=== PATIENT | male | born 1950 | race Caucasian/White ===

== ENCOUNTER 2018-07-08 19:12 | Observation (INO) | payer MEDICARE, OTHER, SELFPAY ==
[2018-07-08 19:13] VITALS: BMI 29.2
--- NOTE | 2018-07-08 20:11 | ED PDOC ---
Syncope/Near Syncope/Dizziness <Aleisha Kumar Y - Last Filed: 07/08/18 23:36> History Per: Patient, EMS, Family Fall Associated With With Symptoms: No Additional Complaint(s): 68M BIBA for "confusion" PMH DM/CVA 2012/A-fib as per EMS notes patient was noted to look confused so bystanders called EMS and he was found to be hypotensive/bradycardic and glucose-84. As per patient [facility] and "nosy friends" called EMS when he laid his head down on the table because he felt weak. Otherwise, he denies SOB/dizziness/chest pain/diaphoresis, but states feeling "a little" nauseous and having a headache. He reports feeling fine but admits to feeling "slow". His daughter is at bedside. 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 Taking Xarelto. - Symptoms Of CVA Associated Symptoms: New Confusion Current Coumadin Use?: Unknown Recent Head Trauma: No <Leonor Neri - Last Filed: 07/10/18 15:07> Time Seen by Provider: 07/08/18 19:18 Chief Complaint (Nursing): Weakness/Neurological Deficit NIHSS Stroke Scale - Date/Time Evaluation Performed Date Performed: 07/08/18 Time Performed: 20:05 When Was NIHSS Performed: Baseline - How Severe is the Stroke Level of Consciousness: 1=Drowsy LOC to Questions: 0=Both comments correct LOC to commands: 0=Obeys both correctly Best Gaze: 0=Normal Visual: 0=No visual loss Facial: 0=Normal Motor Arm - Left: 0=No drift Motor Arm - Right: 0=No drift Motor Leg - Left: 0=No drift Motor Leg - Right: 0=No drift Limb Ataxia: 0=Absent Sensory: 0=Normal Best Language: 0=No aphasia Dysarthia: 0=Normal articulation Extinction & Inattention (Neglect): 0=Normal, no object Score: 1 <Leonor Neri - Last Filed: 07/10/18 15:07> Past Medical History Vital Signs: Last Vital Signs Temp 98.7 F 07/08/18 19:16 Pulse 81 07/08/18 19:16 Resp 20 08/12/18 19:16 BP 134/87 07/08/18 19:16 Pulse Ox 96 07/08/18 21:14 <Aleisha Kumar Y - Last Filed: 07/08/18 23:36> Vital Signs: Last Vital Signs Temp 37.1 C 07/08/18 19:16 Pulse 81 07/08/18 19:16 Resp 20 07/08/18 19:16 BP 134/87 07/08/18 19:16 Pulse Ox 96 07/08/18 19:16 - Medical History PMH: Atrial Fibrillation, HTN, Hypercholesterolemia - Social History Current smoker - smoking cessation education provided: No - Immunization History Hx Tetanus Toxoid Vaccination: Yes Hx Influenza Vaccination: Yes Hx Pneumococcal Vaccination: Yes <Leonor Neri - Last Filed: 07/10/18 15:07> - Home Medications Home Medications: Ambulatory Orders Medication Instructions Recorded Amlodipine Besylate/Benazepril 1 cap PO DAILY 07/08/18 [Amlodipine-Benazepril 5-10 mg] Atorvastatin [Lipitor] 80 mg PO HS 07/08/18 Escitalopram [Lexapro] 1 tab PO DAILY 07/08/18 Glimepiride [Amaryl] 1 tab PO BID 07/08/18 Metoprolol Tartrate [Lopressor] 25 mg PO BID 07/08/18 Rivaroxaban [Xarelto] 1 tab PO HS 07/08/18 Zolpidem [Ambien] 10 mg PO HS 07/08/18 - Allergies Allergies/Adverse Reactions: Allergies Allergy/AdvReac Type Severity Reaction Status Date / Time No Known Allergies Allergy Verified 07/08/18 19:16 Review of Systems Constitutional: Positive for: Weakness. Negative for: Fever, Chills Eyes: Negative for: Vision Change Cardiovascular: Negative for: Chest Pain, Palpitations, Light Headedness Respiratory: Negative for: Cough, Shortness of Breath Gastrointestinal: Negative for: Nausea, Vomiting, Abdominal Pain Genitourinary Male: Negative for: Dysuria Neurological: Positive for: Weakness, Headache, Other (states feeling slow) <Leonor Neri - Last Filed: 07/10/18 15:07> Physical Exam - Reviewed Vital Signs Reviewed: Yes - Physical Exam Appears: Positive for: Well, Non-toxic, No Acute Distress Head Exam: Positive for: ATRAUMATIC, NORMAL INSPECTION Skin: Positive for: Normal Color, Warm, Dry Eye Exam: Positive for: Normal appearance, EOMI, PERRL. Negative for: Nystagmus ENT: Positive for: Pharynx Is (clear) Neck: Positive for: Supple Cardiovascular/Chest: Positive for: Irregularly Irregular. Negative for: JVD Respiratory: Positive for: Normal Breath Sounds. Negative for: Crackles, Rales , Wheezing Gastrointestinal/Abdominal: Positive for: Normal Exam, Bowel Sounds, Soft. Negative for: Tenderness Extremity: Positive for: Normal ROM, Capillary Refill (<3s). 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 Negative for: Motor/Sensory Deficits, Facial Droop <Leonor Neri - Last Filed: 07/10/18 15:07> - Laboratory Results Result Diagrams: 07/08/18 20:30 07/08/18 20:30 <Aleisha Kumar - Last Filed: 07/08/18 23:36> - Laboratory Results Result Diagrams: 07/09/18 05:50 07/09/18 05:50 - ECG O2 Sat by Pulse Oximetry: 96 <Leonor Neri - Last Filed: 07/10/18 15:07> Medical Decision Making Medical Decision Making: 68yo male, presented to ER acting confused. Per EMS, patient noted to be hypotensive and bradycardic on scene. Upon arrival, patient's accucheck noted to be 84. Per daughter, patient has been more confused lately. Patient currently has no medical complaints. On exam, patient with no focal motor deficits. CT Head results reviewed and are negative. Patient given aspirin. Patient follows with Dr. Valencia who is covered by Dr. Puente, and Dr. Puente aware of findings. Dr. Puente recommending consult with Dr. Santana, neurologist information resource consultant. Case discussed with Dr. Santana. Plan to admit patient to Tele, Dr. Puente agrees. <Aleisha Kumar Y - Last Filed: 07/08/18 23:36> Medical Decision Making: Ddx CVA, TIA, [place], infection. - EKG, CT head w/o contrast - CBC, CMP, PT/INR, PTT, Mg, Phos, Troponin 2057: EKG without acute changes/A-fib rate controlled, CT negative for intracranial hemorrhage or acute findings, no leukocytosis, INR is WNL, Troponin is WNL. 2129: Spoke w/ Dr Puente requests: repeat labs in AM, medication list, neuro information resource consultant, MRI, and echo. 2144: Spoke with Dr Santana requests EEG in AM, will hold off on MRI for now, poss bradyphrenia secondary to hypotension vs. possible seizure Family to bring medications in. 2199: Dr Puente informed of Dr Santana's thoughts and agrees as well as requesting pt to continue with Xarelto. <Leonor Neri - Last Filed: 07/10/18 15:07> Disposition <Aleisha Kumar Y - Last Filed: 07/08/18 23:36> - Patient ED Disposition Is Patient to be Admitted: Yes Discussed With : Gelacio Puente Doctor Will See Patient In The: Hospital Counseled Patient/Family Regarding: Studies Performed, Diagnosis - Disposition Disposition Time: 21:33 - Pt Status Changed To: Hospital Disposition Of: Inpatient - Admit Certification Admit to Inpatient:: After my assessment, the patient will require hospitalization for at least two midnights. This is because of the severity of symptoms shown, intensity of services needed, and/or the medical risk in this patient being treated as an outpatient. <Leonor Neri - Last Filed: 07/10/18 15:07> - Clinical Impression Clinical Impression: Atrial fibrillation with controlled ventricular response, Confusion with nonfocal neurological examination - Disposition Condition: FAIR - PA / ASSISTANT CASINO SHIFT MANAGER / Resident Statement / has reviewed & agrees with the documentation as recorded. / has examined the patient and agrees with the treatment plan. <Aleisha Kumar Y - Last Filed: 07/08/18 23:36>
[2018-07-08 20:39] LABS: BASO % 0.7 % (0.0-2.0); EOS % 0.6 % (0.0-4.0); LYMPH % 14.3 % (20.0-40.0); MEAN CELL VOLUME 89.2 fl (80.0-94.0); MEAN CORPUSCULAR HEMOGLOBIN 29.6 pg (27.0-31.0); MEAN CORPUSCULAR HGB CONC 33.2 g/dL (33.0-37.0); MEAN PLATELET VOLUME 7.5 fl (7.2-11.7); MONO # 0.6 K/uL (0.0-0.8); NEUT # 5.3 K/uL (1.8-7.0); NEUT % 76.4 % (50.0-75.0); NRBC % 0.1 % (0.0-0.0); RBC 5.74 Mil/uL (4.40-5.90); RED CELL DISTRIBUTION WIDTH 13.4 % (11.5-14.5); WHITE BLOOD COUNT 6.9 K/uL (4.8-10.8)
[2018-07-08 20:42] LABS: INR 1.1; PROTHROMBIN TIME 11.7 Seconds (9.8-13.1)
[2018-07-08 20:44] LABS: PARTIAL THROMBOPLASTIN TIME 31.7 Seconds (25.6-37.1)
[2018-07-08 20:50] LABS: ALB/GLOB RATIO 1.5 (1.0-2.1); ALBUMIN 4.4 g/dL (3.5-5.0); ALT/SGPT 32 U/L (21-72); AST/SGOT 37 U/L (17-59); BLOOD UREA NITROGEN 19 mg/dl (9-20); CALCIUM 9.7 mg/dL (8.4-10.2); GFR AFRICAN-AMERICAN > 60; GFR NON-AFRICAN AMERICAN > 60
[2018-07-08 23:50] LABS: URINE BILIRUBIN NEGATIVE (NEGATIVE); URINE BLOOD NEGATIVE (NEGATIVE); URINE CLARITY SLIGHTY-CLOUDY (Clear); URINE COLOR YELLOW (YELLOW); URINE GLUCOSE (UA) NEG (Normal); URINE LEUKOCYTE ESTERASE NEG Leu/uL (Negative); URINE PROTEIN 30 mg/dL (NEGATIVE); URINE UROBILINOGEN 0.2-1.0 mg/dL (0.2-1.0)
[2018-07-09] MEDS: Insulin Regular 100 units/ml SC SCH ×4 (06:24→22:31)
[2018-07-09 06:49] LABS: BASO % 0.7 % (0.0-2.0); EOS # 0.1 K/uL (0.0-0.7); EOS % 2.2 % (0.0-4.0); HEMOGLOBIN 17.1 g/dL (12.0-18.0); LYMPH # 1.3 K/uL (1.0-4.3); LYMPH % 23.7 % (20.0-40.0); MEAN CORPUSCULAR HEMOGLOBIN 29.6 pg (27.0-31.0); MEAN CORPUSCULAR HGB CONC 33.2 g/dL (33.0-37.0); MEAN PLATELET VOLUME 7.9 fl (7.2-11.7); MONO # 0.6 K/uL (0.0-0.8); MONO % 11.6 % (0.0-10.0); NEUT # 3.4 K/uL (1.8-7.0); NEUT % 61.8 % (50.0-75.0); NRBC % 0.6 % (0.0-0.0); RBC 5.79 Mil/uL (4.40-5.90); RED CELL DISTRIBUTION WIDTH 13.1 % (11.5-14.5); WHITE BLOOD COUNT 5.5 K/uL (4.8-10.8)
[2018-07-09 06:56] LABS: INR 1.4; PROTHROMBIN TIME 15.6 Seconds (9.8-13.1)
[2018-07-09 06:59] LABS: PARTIAL THROMBOPLASTIN TIME 43.1 Seconds (25.6-37.1)
[2018-07-09 07:04] LABS: LDL CHOLESTEROL 67 mg/dL (0-129)
[2018-07-09 07:09] LABS: T4 7.62 ug/dl (5.5-11.0)
[2018-07-09 07:37] LABS: ALB/GLOB RATIO 1.4 (1.0-2.1); ALBUMIN 4.2 g/dL (3.5-5.0); ALT/SGPT 35 U/L (21-72); AST/SGOT 35 U/L (17-59); BLOOD UREA NITROGEN 15 mg/dl (9-20); CALCIUM 9.2 mg/dL (8.4-10.2); GFR AFRICAN-AMERICAN > 60; GFR NON-AFRICAN AMERICAN > 60; HDL CHOLESTEROL 38 MG/DL (30-70)
--- NOTE | 2018-07-09 08:02 | CARD ---
APPROVED REPORT Date of service: 07/08/2018 EKG Measurement Heart [id number] <Conclusion> Atrial fibrillation Nonspecific ST and T wave abnormality Abnormal ECG
[2018-07-09] MEDS: GlipiZIDE 5 mg SR Tab PO SCH (08:45)
--- NOTE | 2018-07-09 09:04 | CT ---
Date of service: 07/08/2018 PROCEDURE: CT HEAD WITHOUT CONTRAST. HISTORY: near syncope COMPARISON: 05/27/2014. TECHNIQUE: Axial computed tomography images were obtained through the head/brain without intravenous contrast. Coronal and sagittal reconstructed images. Radiation dose: Total exam DLP = 726.64. MGy-cm. This CT exam was performed using one or more of the following dose reduction techniques: Automated exposure control, adjustment of the mA and/or kV according to patient size, and/or use of iterative reconstruction technique. FINDINGS: HEMORRHAGE: No intracranial hemorrhage. BRAIN: No mass effect or edema. Volume loss/ encephalomalacia change right frontal lobe. Similar findings identified previously. VENTRICLES: Unremarkable. No hydrocephalus. CALVARIUM: Unremarkable. PARANASAL SINUSES: Unremarkable as visualized. No significant inflammatory changes. MASTOID AIR CELLS: Unremarkable as visualized. No inflammatory changes. OTHER FINDINGS: None. IMPRESSION: No acute intracranial abnormalities. No significant findings to account for the clinical presentation. No significant interval change compared to the prior examination(s). Concordant results (preliminary interpretation) provided by [employer]. Procedure Completed: 20:32 Preliminary ([employer]Rad) Report: Dictated and Authenticated: 20:48. Final Interpretation: 09:02. July 09, 2018.
--- NOTE | 2018-07-09 11:48 | CARD ---
APPROVED REPORT Date of service: 07/09/2018 EXAM: Two-dimensional and M-mode echocardiogram with Doppler and color Doppler. Other Information Quality : GoodRhythm : NSR INDICATION Dizziness and Vertigo 2D DIMENSIONS IVSd1.25 (0.7-1.1cm)LVDd5.18 (3.9-5.9cm) LVOT Diameter1.96 (1.8-2.4cm)PWd1.23 (0.7-1.1cm) IVSs1.04 (0.8-1.2cm)LVDs4.69 (2.5-4.0cm) FS (%) 9.5 %PWs1.02 (0.8-1.2cm) M-Mode DIMENSIONS Left Atrium (MM)4.56 (2.5-4.0cm)IVSd0.76 (0.7-1.1cm) Aortic Root3.18 (2.2-3.7cm)Aortic Cusp Exc.1.74 (1.5-2.0cm) PWd0.97 (0.7-1.1cm)IVSs1.26 cm FS (%) 29 %PWs1.06 cm Aortic Valve AoV Peak Ijfeoyvg713.1cm/sAoV VTI16.2cmAO Peak GR.4mmHg LVOT Peak Shktaqkg82.0cm/sLVOT VTI11.86cmAO Mean GR.2mmHg Mitral Valve MV E Mhqusvog25.3cm/sMV DECEL HWKD415gsBO A Ztrslsdi62.4cm/s MV FTV86umI/A ratio3.6MVA (PHT)3.90cm2 TDI Lateral E' Peak V9.94cm/sMedial E' Peak V8.96cm/sE/Lateral E'6.7 E/Medial E'7.4 Pulmonary Valve PV Peak Wijlqngs296.5cm/s Tricuspid Valve TR Peak Kqxhbtvs665my/sRAP CRRJXNGM21hsGbRA Peak Gr.18mmHg EAVB68bqJm LEFT VENTRICLE The left ventricle is normal size. There is normal left ventricular wall thickness. The left ventricular ejection fraction is within the normal range. The Ejection Fraction is 55%. No regional wall motion abnormalities noted.. The left ventricular diastolic function is unable to be accurately assessed No left ventricle thrombus noted on this study. There is no ventricular septal defect visualized. There is no mass noted in the left ventricle. RIGHT VENTRICLE The right ventricle is normal size. There is normal right ventricular wall thickness. The right ventricular systolic function is normal. ATRIA The left atrium size is moderately dilated The right atrium size is normal. The interatrial septum is intact with no evidence for an atrial septal defect. AORTIC VALVE The aortic valve is normal in structure. No aortic regurgitation is present. There is no aortic valvular stenosis. MITRAL VALVE The mitral valve is normal in structure. There is no mitral valve stenosis. There is mild mitral valve regurgitation noted. TRICUSPID VALVE The tricuspid valve is normal in structure. There is mild tricuspid valve regurgitation noted. PASP in normal range PULMONIC VALVE The pulmonary valve is normal in structure. There is no pulmonic valvular regurgitation. GREAT VESSELS The aortic root is normal in size. The ascending aorta is normal in size. The pulmonary artery is normal. The IVC is normal in size and collapses >50% with inspiration. PERICARDIAL EFFUSION There is no pericardial effusion. <Conclusion> Mild mitral insufficiency Mild TR with normal PASP Dilated left atrium Normal LV systolic function The Ejection Fraction is 55%.
--- NOTE | 2018-07-09 12:33 | US ---
Date of service: 07/09/2018 PROCEDURE: Duplex ultrasound of the carotid and vertebral arteries. HISTORY: dizziness COMPARISON: None available. TECHNIQUE: Grayscale and duplex Doppler evaluation of the cervical carotid and vertebral arteries were performed. The common carotid, carotid bifurcations and cervical ICA and proximal ECA were evaluated. The vertebral arteries were evaluated for gross patency and direction. FINDINGS: RIGHT CAROTID ARTERIES: Common Carotid Artery: Intimal thickening is present Maximal flow velocity of 79.4 cm/s. Carotid Bifurcation: Heterogeneous plaque formation. Internal Carotid Artery:Heterogeneous plaque formation. Maximal flow velocity of 55.7 cm/s. External Carotid Artery (proximal branches): Normal. Maximal flow velocity of 94.4 cm/s. ICA/CCA Ratio: 0.8 LEFT CAROTID ARTERIES: Common Carotid Artery: Intimal thickening is present Maximal flow velocity of 85.3 cm/s. Carotid Bifurcation: Heterogeneous plaque formation. Internal Carotid Artery:Heterogeneous plaque formation. Maximal flow velocity of 52.8 cm/s. External Carotid Artery (proximal branches): Normal. Maximal flow velocity of 64.6 cm/s. ICA/CCA Ratio: 0.6 VERTEBRAL ARTERIES: Right Vertebral Artery: Patent. Antegrade flow. Left Vertebral Artery: Patent. Antegrade flow. OTHER FINDINGS: None. IMPRESSION: Right ICA degree of stenosis: Less than 50% Left ICA degree of stenosis: Less than 50% Reference Internal Carotid Artery (ICA) Peak Systolic Velocity (PSV) for above: 1. Less than 50% stenosis less than 125 cm/s peak systolic velocity 2. 50-69% stenosis 125-230cm/s peak systolic velocity 3. Greater than 70% but less than near occlusion greater than 230 cm/s peak systolic velocity
--- NOTE | 2018-07-09 15:16 | CP.PCM.HP ---
History of Present Illness - History of Present Illness History of Present Illness: 68 y/o M, with Hx of CVA 2012, [facility] A[facility] with no relief, but today symptom subsided. As per EMS; Pt was sitting with his friends at [employer] when suddenly began acting confused/disoriented, associated to dizziness and nausea, no vomiting, Pt felt tired and rested head on table, 911 was called by friends. Worsening symptom: Found with Hypotension and Bradycardia by Paramedics, unable to stand up. Aggravated factor: Movement. Pt denied: Fever, chills, n/v/d,abdominal pain, urinary symptoms, CP, palpitations, numbness, syncope, headache, back pain, sick contact, recent travel out of [facility]. ECG: A Fib, nonspecific ST and T wave abnormality. Carotid Artery U-S: R- L ICA degree of stenosis less than 50%. Head CT: No acute findings. Echo: Mild mitral insufficiency. LVEF 55%. Present on Admission - Present on Admission Any Indicators Present on Admission: No Review of Systems - Constitutional Constitutional: Weakness - EENT Eyes: Requires Corrective Lenses Ears: Other (negative) Nose/Mouth/Throat: Other (negative) - Cardiovascular Cardiovascular: Slow Heart Rate - Respiratory Respiratory: Other (negative) - Gastrointestinal Gastrointestinal: Other (negative) - Genitourinary Genitourinary: Other (negative) - Musculoskeletal Musculoskeletal: Other (negative) - Integumentary Integumentary: Other (negative) - Neurological Neurological: Behavioral Changes, Confusion, Dizziness, Weakness - Psychiatric Psychiatric: Anxiety, Depression - Endocrine Endocrine: Other (negative) - Hematologic/Lymphatic Hematologic: Other (negative) Past Patient History - Past Medical History & Family History Past Medical History?: Yes Pertinent Family History: Unknown - Past Social History Smoking Status: Former Smoker Alcohol: None Drugs: Denies Home Situation {Lives}: With Family - CARDIAC Hx Cardiac Disorders: Yes Hx Atrial Fibrillation: Yes Hx Hypercholesterolemia: Yes Hx Hypertension: Yes - PULMONARY Hx Respiratory Disorders: No - NEUROLOGICAL Hx Neurological Disorder: Yes HX Cerebrovascular Accident: Yes (April 2013) - HEENT Hx HEENT Problems: No - RENAL Hx Chronic Kidney Disease: No - ENDOCRINE/METABOLIC Hx Endocrine Disorders: Yes Hx Diabetes Mellitus Type 2: Yes - HEMATOLOGICAL/ONCOLOGICAL Hx Blood Disorders: Yes Other/Comment: Polycythemia Vera - INTEGUMENTARY Hx Dermatological Problems: No - MUSCULOSKELETAL/RHEUMATOLOGICAL Hx Musculoskeletal Disorders: No Hx Falls: No - GASTROINTESTINAL Hx Gastrointestinal Disorders: No - GENITOURINARY/GYNECOLOGICAL Hx Genitourinary Disorders: No - PSYCHIATRIC Hx Psychophysiologic Disorder: Yes Hx Depression: Yes Hx Substance Use: No - SURGICAL HISTORY Hx Surgeries: No - ANESTHESIA Hx Anesthesia: No Hx Anesthesia Reactions: No Hx Malignant Hyperthermia: No Meds Allergies/Adverse Reactions: Allergies Allergy/AdvReac Type Severity Reaction Status Date / Time No Known Allergies Allergy Verified 07/08/18 19:16 Physical Exam - Constitutional Appears: No Acute Distress - Head Exam Head Exam: NORMAL INSPECTION - Eye Exam Eye Exam: PERRL - ENT Exam ENT Exam: Mucous Membranes Moist - Neck Exam Neck exam: Positive for: Normal Inspection - Respiratory Exam Respiratory Exam: NORMAL BREATHING PATTERN - Cardiovascular Exam Cardiovascular Exam: Irregular Rhythm - GI/Abdominal Exam GI & Abdominal Exam: Normal Bowel Sounds, Soft - Extremities Exam Extremities exam: Positive for: normal inspection - Back Exam Back exam: NORMAL INSPECTION - Neurological Exam Neurological exam: Alert, Oriented x3 Additional comments: no focal motor/sensory deficit - Psychiatric Exam Psychiatric exam: Depressed - Skin Skin Exam: Normal Color, Warm Results - Vital Signs Recent Vital Signs: Last Vital Signs Temp 98 F 07/09/18 13:38 Pulse 70 07/09/18 13:38 Resp 18 07/09/18 13:38 BP 119/84 07/09/18 13:38 Pulse Ox 97 07/09/18 13:38 reviewed J.Cruz - Labs Result Diagrams: 07/09/18 05:50 07/09/18 05:50 Labs: Laboratory Results - last 24 hr 07/08/18 07/08/18 07/08/18 19:15 20:30 20:30 WBC 6.9 RBC 5.74 Hgb 17.0 Hct 51.2 H MCV 89.2 MCH 29.6 MCHC 33.2 RDW 13.4 Plt Count 150 MPV 7.5 Neut % (Auto) 76.4 H Lymph % (Auto) 14.3 L [place] % (Auto) 8.0 Eos % (Auto) 0.6 Baso % (Auto) 0.7 Neut # (Auto) 5.3 Lymph # (Auto) 1.0 [place] # (Auto) 0.6 Eos # (Auto) 0.0 Baso # (Auto) 0.0 PT INR APTT Sodium 139 Potassium 4.6 Chloride 102 Carbon Dioxide 28 Anion Gap 14 BUN 19 Creatinine 0.8 Est GFR ( Amer) > 60 Est GFR (Non-Af Amer) > 60 POC Glucose (mg/dL) 84 Random Glucose 94 Hemoglobin A1c Calcium 9.7 Phosphorus 4.7 H Magnesium 1.7 Total Bilirubin 0.6 AST 37 ALT 32 Alkaline Phosphatase 95 Troponin I < 0.0120 Total Protein 7.5 Albumin 4.4 Globulin 3.0 Albumin/Globulin Ratio 1.5 Triglycerides Cholesterol LDL Cholesterol Direct HDL Cholesterol Thyroxine (T4) TSH 3rd Generation Urine Color Urine Clarity Urine pH Ur Specific [place] Urine Protein Urine Glucose (UA) Urine Ketones Urine Blood Urine Nitrate Urine Bilirubin Urine Urobilinogen Ur Leukocyte Esterase Urine RBC (Auto) Urine Microscopic WBC 07/08/18 07/08/18 07/09/18 20:30 22:10 05:23 WBC RBC Hgb Hct MCV MCH MCHC RDW Plt Count MPV Neut % (Auto) Lymph % (Auto) [place] % (Auto) Eos % (Auto) Baso % (Auto) Neut # (Auto) Lymph # (Auto) [place] # (Auto) Eos # (Auto) Baso # (Auto) PT 11.7 INR 1.1 APTT 31.7 Sodium Potassium Chloride Carbon Dioxide Anion Gap BUN Creatinine Est GFR ( Amer) Est GFR (Non-Af Amer) POC Glucose (mg/dL) 88 Random Glucose Hemoglobin A1c Calcium Phosphorus Magnesium Total Bilirubin AST ALT Alkaline Phosphatase Troponin I Total Protein Albumin Globulin Albumin/Globulin Ratio Triglycerides Cholesterol LDL Cholesterol Direct HDL Cholesterol Thyroxine (T4) TSH 3rd Generation Urine Color Yellow Urine Clarity Slighty-cloudy Urine pH 7.0 Ur Specific [place] 1.018 Urine Protein 30 Urine Glucose (UA) Neg Urine Ketones Trace Urine Blood Negative Urine Nitrate Negative Urine Bilirubin Negative Urine Urobilinogen 0.2-1.0 Ur Leukocyte Esterase Neg Urine RBC (Auto) 1 Urine Microscopic WBC 1 07/09/18 07/09/18 07/09/18 05:50 05:50 05:50 WBC 5.5 RBC 5.79 Hgb 17.1 Hct 51.6 H MCV 89.0 MCH 29.6 MCHC 33.2 RDW 13.1 Plt Count 148 MPV 7.9 Neut % (Auto) 61.8 Lymph % (Auto) 23.7 [place] % (Auto) 11.6 H Eos % (Auto) 2.2 Baso % (Auto) 0.7 Neut # (Auto) 3.4 Lymph # (Auto) 1.3 [place] # (Auto) 0.6 Eos # (Auto) 0.1 Baso # (Auto) 0.0 PT 15.6 H INR 1.4 APTT 43.1 H Sodium 141 Potassium 4.1 Chloride 100 Carbon Dioxide 30 Anion Gap 15 BUN 15 Creatinine 0.8 Est GFR ( Amer) > 60 Est GFR (Non-Af Amer) > 60 POC Glucose (mg/dL) Random Glucose 85 Hemoglobin A1c Calcium 9.2 Phosphorus Magnesium Total Bilirubin 0.7 AST 35 ALT 35 Alkaline Phosphatase 92 Troponin I Total Protein 7.2 Albumin 4.2 Globulin 3.0 Albumin/Globulin Ratio 1.4 Triglycerides 153 H Cholesterol 131 LDL Cholesterol Direct 67 HDL Cholesterol 38 Thyroxine (T4) 7.62 TSH 3rd Generation 2.62 Urine Color Urine Clarity Urine pH Ur Specific [place] Urine Protein Urine Glucose (UA) Urine Ketones Urine Blood Urine Nitrate Urine Bilirubin Urine Urobilinogen Ur Leukocyte Esterase Urine RBC (Auto) Urine Microscopic WBC 07/09/18 07/09/18 05:50 12:33 WBC RBC Hgb Hct MCV MCH MCHC RDW Plt Count MPV Neut % (Auto) Lymph % (Auto) [place] % (Auto) Eos % (Auto) Baso % (Auto) Neut # (Auto) Lymph # (Auto) [place] # (Auto) Eos # (Auto) Baso # (Auto) PT INR APTT Sodium Potassium Chloride Carbon Dioxide Anion Gap BUN Creatinine Est GFR ( Amer) Est GFR (Non-Af Amer) POC Glucose (mg/dL) 126 H Random Glucose Hemoglobin A1c 6.5 Calcium Phosphorus Magnesium Total Bilirubin AST ALT Alkaline Phosphatase Troponin I Total Protein Albumin Globulin Albumin/Globulin Ratio Triglycerides Cholesterol LDL Cholesterol Direct HDL Cholesterol Thyroxine (T4) TSH 3rd Generation Urine Color Urine Clarity Urine pH Ur Specific [place] Urine Protein Urine Glucose (UA) Urine Ketones Urine Blood Urine Nitrate Urine Bilirubin Urine Urobilinogen Ur Leukocyte Esterase Urine RBC (Auto) Urine Microscopic WBC reviewed J.P. - EKG Data EKG comments: reviewed J.P. - Impressions Impression: Echo: Reviewed j.P. - Imaging and Cardiology Chest x-ray Status: Report reviewed by me ([email or web address].) Assessment & Plan (1) Altered mental status Status: Acute (2) Confusion with nonfocal neurological examination Status: Acute Priority: High (3) Generalized weakness Status: Acute Priority: High (4) DMII (diabetes mellitus, type 2) Status: Chronic Priority: Medium (5) HTN (hypertension) Status: Chronic Priority: Medium (6) Depression Status: Chronic Priority: Medium (7) Anxiety Status: Chronic Priority: Medium (8) Dyslipidemia Status: Chronic Priority: Medium - Assessment and Plan (Free Text) Plan: F/U CTA Head and Neck, Brain MRI, continue Vasotec, Lopressor, Lipitor, Lexapro and rest of Tx, PT,OT, Neurology consult - Date & Time Date: 07/09/18 Time: 13:00
--- NOTE | 2018-07-09 17:15 | CP.PCM.CON ---
History of Present Illness - History of Present Illness History of Present Illness: 68 yr old male who was at [employer] with his friends when he was told he sounded funny, became dizzy and had to put his head down on the table. He denies chest pain, headache, weakness, and prior spells. When he tried to get up, he couldnt and ambulance was called. says dizziness was positional, and caused some nausea, but no vomiting. Today he is well with no residual sypmptoms. PMH/PSH: FH/SH: All: On exam: Normal Neurological examination. There is no dysmetria, no dysarthira, naming and repetition are intact. MMS: Past Patient History - Past Medical History & Family History Past Medical History?: Yes - Past Social History Smoking Status: Former Smoker - CARDIAC Hx Cardiac Disorders: Yes Hx Atrial Fibrillation: Yes Hx Hypercholesterolemia: Yes Hx Hypertension: Yes - PULMONARY Hx Respiratory Disorders: No - NEUROLOGICAL Hx Neurological Disorder: Yes HX Cerebrovascular Accident: Yes (April 2013) - HEENT Hx HEENT Problems: No - RENAL Hx Chronic Kidney Disease: No - ENDOCRINE/METABOLIC Hx Endocrine Disorders: Yes Hx Diabetes Mellitus Type 2: Yes - HEMATOLOGICAL/ONCOLOGICAL Hx Blood Disorders: Yes Other/Comment: Polycythemia Vera - INTEGUMENTARY Hx Dermatological Problems: No - MUSCULOSKELETAL/RHEUMATOLOGICAL Hx Musculoskeletal Disorders: No Hx Falls: No - GASTROINTESTINAL Hx Gastrointestinal Disorders: No - GENITOURINARY/GYNECOLOGICAL Hx Genitourinary Disorders: No - PSYCHIATRIC Hx Psychophysiologic Disorder: Yes Hx Depression: Yes Hx Substance Use: No - SURGICAL HISTORY Hx Surgeries: No - ANESTHESIA Hx Anesthesia: No Hx Anesthesia Reactions: No Hx Malignant Hyperthermia: No Meds Allergies/Adverse Reactions: Allergies Allergy/AdvReac Type Severity Reaction Status Date / Time No Known Allergies Allergy Verified 07/08/18 19:16 - Medications Medications: Current Medications Atorvastatin Calcium (Lipitor) 80 mg PO [facility] Enalapril Maleate (Vasotec) 10 mg PO DAILY [facility] Last Admin: 07/09/18 08:45 Dose: 10 mg Escitalopram Oxalate (Lexapro) 10 mg PO DAILY [facility] Last Admin: 07/09/18 08:45 Dose: 10 mg Glipizide (Glucotrol Xl) 5 mg PO BRK [facility] Last Admin: 07/09/18 08:45 Dose: 5 mg Insulin Human Regular (Humulin R) 0 units SC ACCU-CHECK JOSEPH PRN Reason: Protocol Last Admin: 07/09/18 12:35 Dose: Not Given Metoprolol Tartrate (Lopressor) 25 mg PO BID [facility] Last Admin: 07/09/18 08:45 Dose: 25 mg Rivaroxaban (Xarelto) 20 mg PO HS [facility] PRN Reason: Protocol Zolpidem Tartrate (Ambien) 10 mg PO HS [facility] Results - Vital Signs Recent Vital Signs: Last Vital Signs Temp 98.0 F 07/09/18 16:33 Pulse 60 07/09/18 16:33 Resp 18 07/09/18 16:33 BP 114/76 07/09/18 16:33 Pulse Ox 96 07/09/18 16:33 - Labs Result Diagrams: 07/09/18 05:50 07/09/18 05:50 Labs: Laboratory Results - last 24 hr 07/08/18 07/08/18 07/08/18 19:15 20:30 20:30 WBC 6.9 RBC 5.74 Hgb 17.0 Hct 51.2 H MCV 89.2 MCH 29.6 MCHC 33.2 RDW 13.4 Plt Count 150 MPV 7.5 Neut % (Auto) 76.4 H Lymph % (Auto) 14.3 L [place] % (Auto) 8.0 Eos % (Auto) 0.6 Baso % (Auto) 0.7 Neut # (Auto) 5.3 Lymph # (Auto) 1.0 [place] # (Auto) 0.6 Eos # (Auto) 0.0 Baso # (Auto) 0.0 PT INR APTT Sodium 139 Potassium 4.6 Chloride 102 Carbon Dioxide 28 Anion Gap 14 BUN 19 Creatinine 0.8 Est GFR ( Amer) > 60 Est GFR (Non-Af Amer) > 60 POC Glucose (mg/dL) 84 Random Glucose 94 Hemoglobin A1c Calcium 9.7 Phosphorus 4.7 H Magnesium 1.7 Total Bilirubin 0.6 AST 37 ALT 32 Alkaline Phosphatase 95 Troponin I < 0.0120 Total Protein 7.5 Albumin 4.4 Globulin 3.0 Albumin/Globulin Ratio 1.5 Triglycerides Cholesterol LDL Cholesterol Direct HDL Cholesterol Thyroxine (T4) TSH 3rd Generation Urine Color Urine Clarity Urine pH Ur Specific [place] Urine Protein Urine Glucose (UA) Urine Ketones Urine Blood Urine Nitrate Urine Bilirubin Urine Urobilinogen Ur Leukocyte Esterase Urine RBC (Auto) Urine Microscopic WBC 07/08/18 07/08/18 07/09/18 20:30 22:10 05:23 WBC RBC Hgb Hct MCV MCH MCHC RDW Plt Count MPV Neut % (Auto) Lymph % (Auto) [place] % (Auto) Eos % (Auto) Baso % (Auto) Neut # (Auto) Lymph # (Auto) [place] # (Auto) Eos # (Auto) Baso # (Auto) PT 11.7 INR 1.1 APTT 31.7 Sodium Potassium Chloride Carbon Dioxide Anion Gap BUN Creatinine Est GFR ( Amer) Est GFR (Non-Af Amer) POC Glucose (mg/dL) 88 Random Glucose Hemoglobin A1c Calcium Phosphorus Magnesium Total Bilirubin AST ALT Alkaline Phosphatase Troponin I Total Protein Albumin Globulin Albumin/Globulin Ratio Triglycerides Cholesterol LDL Cholesterol Direct HDL Cholesterol Thyroxine (T4) TSH 3rd Generation Urine Color Yellow Urine Clarity Slighty-cloudy Urine pH 7.0 Ur Specific [place] 1.018 Urine Protein 30 Urine Glucose (UA) Neg Urine Ketones Trace Urine Blood Negative Urine Nitrate Negative Urine Bilirubin Negative Urine Urobilinogen 0.2-1.0 Ur Leukocyte Esterase Neg Urine RBC (Auto) 1 Urine Microscopic WBC 1 07/09/18 07/09/18 07/09/18 05:50 05:50 05:50 WBC 5.5 RBC 5.79 Hgb 17.1 Hct 51.6 H MCV 89.0 MCH 29.6 MCHC 33.2 RDW 13.1 Plt Count 148 MPV 7.9 Neut % (Auto) 61.8 Lymph % (Auto) 23.7 [place] % (Auto) 11.6 H Eos % (Auto) 2.2 Baso % (Auto) 0.7 Neut # (Auto) 3.4 Lymph # (Auto) 1.3 [place] # (Auto) 0.6 Eos # (Auto) 0.1 Baso # (Auto) 0.0 PT 15.6 H INR 1.4 APTT 43.1 H Sodium 141 Potassium 4.1 Chloride 100 Carbon Dioxide 30 Anion Gap 15 BUN 15 Creatinine 0.8 Est GFR ( Amer) > 60 Est GFR (Non-Af Amer) > 60 POC Glucose (mg/dL) Random Glucose 85 Hemoglobin A1c Calcium 9.2 Phosphorus Magnesium Total Bilirubin 0.7 AST 35 ALT 35 Alkaline Phosphatase 92 Troponin I Total Protein 7.2 Albumin 4.2 Globulin 3.0 Albumin/Globulin Ratio 1.4 Triglycerides 153 H Cholesterol 131 LDL Cholesterol Direct 67 HDL Cholesterol 38 Thyroxine (T4) 7.62 TSH 3rd Generation 2.62 Urine Color Urine Clarity Urine pH Ur Specific [place] Urine Protein Urine Glucose (UA) Urine Ketones Urine Blood Urine Nitrate Urine Bilirubin Urine Urobilinogen Ur Leukocyte Esterase Urine RBC (Auto) Urine Microscopic WBC 07/09/18 07/09/18 05:50 12:33 WBC RBC Hgb Hct MCV MCH MCHC RDW Plt Count MPV Neut % (Auto) Lymph % (Auto) [place] % (Auto) Eos % (Auto) Baso % (Auto) Neut # (Auto) Lymph # (Auto) [place] # (Auto) Eos # (Auto) Baso # (Auto) PT INR APTT Sodium Potassium Chloride Carbon Dioxide Anion Gap BUN Creatinine Est GFR ( Amer) Est GFR (Non-Af Amer) POC Glucose (mg/dL) 126 H Random Glucose Hemoglobin A1c 6.5 Calcium Phosphorus Magnesium Total Bilirubin AST ALT Alkaline Phosphatase Troponin I Total Protein Albumin Globulin Albumin/Globulin Ratio Triglycerides Cholesterol LDL Cholesterol Direct HDL Cholesterol Thyroxine (T4) TSH 3rd Generation Urine Color Urine Clarity Urine pH Ur Specific [place] Urine Protein Urine Glucose (UA) Urine Ketones Urine Blood Urine Nitrate Urine Bilirubin Urine Urobilinogen Ur Leukocyte Esterase Urine RBC (Auto) Urine Microscopic WBC Assessment & Plan - Assessment and Plan (Free Text) Assessment: 68 yr old male, with significant cardiac disease, a history of TIA in the past , who is here for evaluation of dizziness and dysarthria that has since resolved. I am quite concerned about possible TIA, and will pursue stroke workup. Plan: 1. MRI Brain without contrast. 2. start aspirin 3. IF Mri brain is normal, further stroke workup maybe discontinued. Thank you Dr. Knox
[2018-07-09] MEDS ORDERED: Iodixanol 320 MG/ML 100 ML BOTTLE IV ONE (19:38)
[2018-07-09] MEDS ORDERED: Sodium Chloride 0.9% 50 ML IV ONE (19:38)
[2018-07-10] MEDS: Insulin Regular 100 units/ml SC SCH ×2 (06:38→12:21)
[2018-07-10] MEDS: GlipiZIDE 5 mg SR Tab PO SCH (08:29)
--- NOTE | 2018-07-10 13:08 | MRI ---
Date of service: 07/09/2018 PROCEDURE: MRI BRAIN WITHOUT CONTRAST HISTORY: Gen. weakness and dizziness COMPARISON: Noncontrast head CT from 07/08/2018. TECHNIQUE: Multiplanar, multisequence MR images of the brain were obtained without intravenous contrast enhancement. FINDINGS: HEMORRHAGE: None DWI: No evidence of an acute or early subacute infarction. BRAIN PARENCHYMA: There is cystic encephalomalacia and gliosis in the right frontal and parietal lobes with volume loss, ex vacuo dilatation of the right lateral ventricle and medullary degeneration of the pyramidal tract. There is no mass, mass effect or abnormal extra-axial fluid collection. The midline sagittal structures are normal. VENTRICLES: There is mild age-related global parenchymal volume loss and proportionate enlargement of the ventricles and cortical sulci. CRANIUM: There is normal bone marrow signal pattern. ORBITS: Grossly unremarkable. PARANASAL SINUSES/MASTOIDS: Predominantly clear VASCULAR SYSTEM: There are normal signal voids in the larger intracranial arteries. OTHER FINDINGS: None. IMPRESSION: No acute intracranial abnormality. Cystic encephalomalacia and gliosis in the right frontal and parietal lobe, sequela of remote MCA territory infarction. A preliminary report was provided by [facility].
--- NOTE | 2018-07-10 13:30 | CT ---
PROCEDURE: CTA HEAD AND NECK WITH CONTRAST HISTORY: Gen. weakness and dizziness COMPARISON: None available. TECHNIQUE: Initial noncontrast head CT was performed. Subsequently, CT angiogram of the head and neck were performed after the intravenous administration of 80 mL of Omnipaque 350. Contiguous 1.5mm thick images were obtained in the axial plane of the neck. 2-D coronal and sagittal MPR images were obtained. Imaging postprocessing was performed with 3-D images also obtained. A delayed contrast head CT was also obtained. This CT exam was performed using one or more of the following dose reduction techniques: Automated exposure control, adjustment of the mA and/or kV according to patient size, and/or use of iterative reconstruction technique. Contrast dose: 80 mL Visipaque 320 Radiation dose: Total exam DLP = 459.14 mGy-cm. FINDINGS: HEAD: There are atherosclerotic calcifications in the cavernous carotid arteries and mild calcifications in the vertebral arteries. Right: The intracranial internal carotid artery, and anterior and middle cerebral arteries are widely patent. Left: The intracranial internal carotid artery, and anterior and middle cerebral arteries are widely patent. Posterior circulation: The visualized intracranial vertebral arteries, basilar artery and posterior cerebral arteries are widely patent. The right vertebral artery is hypoplastic, an anatomic variant. There is no endoluminal filling defect to suggest thrombus. There is no intracranial saccular aneurysm. NECK: There is a three vessel aortic arch. There is no stenosis at the origins of the great vessels at the level of the aortic arch. There are calcified and noncalcified atherosclerotic plaques in the carotid bulbs without evidence for hemodynamically significant stenosis. Right Carotid: On the right, the common carotid, internal carotid and external carotid arteries are widely patent. There is no hemodynamically significant stenosis in the internal carotid artery by NASCET criteria. Left Carotid: On the left, the common carotid, internal carotid and external carotid arteries are widely patent.There is no hemodynamically significant stenosis in the internal carotid arteries. There is no hemodynamically significant stenosis in the internal carotid artery by NASCET criteria. The vertebral arteries are widely patent. The right vertebral artery is hypoplastic, an anatomic variant. The visualized soft tissues of the neck are normal. The visualized brain and cervical spine are within normal limits. The lung apices are clear. There is a calcified granuloma in the left upper lobe. IMPRESSION: 1. No evidence of endoluminal thrombus,occlusion or definite significant stenosis in the intracranial arteries. 2. No evidence of hemodynamically significant stenosis in the internal carotid arteries. 3. Patent bilateral vertebral arteries. A preliminary report was provided by [facility].
[2018-07-10 16:06] VITALS: BP 125/87; PULSE 86; RESP 17; TEMP 98.1; O2SAT 97
--- NOTE | 2018-07-10 16:53 | CP.PCM.DIS ---
Provider - Provider Date of Admission: 07/08/18 21:44 Attending physician: Gelacio Puente MD Diagnosis - Discharge Diagnosis (1) Altered mental status Status: Acute (2) Confusion with nonfocal neurological examination Status: Acute Priority: High (3) Generalized weakness Status: Acute Priority: High (4) DMII (diabetes mellitus, type 2) Status: Chronic Priority: Medium (5) HTN (hypertension) Status: Chronic Priority: Medium (6) Depression Status: Chronic Priority: Medium (7) Anxiety Status: Chronic Priority: Medium (8) Dyslipidemia Status: Chronic Priority: Medium Hospital Course - Lab Results Lab Results: Most Recent Lab Values WBC 5.5 K/uL (4.8-10.8) 07/09/18 05:50 RBC 5.79 Mil/uL (4.40-5.90) 07/09/18 05:50 Hgb 17.1 g/dL (12.0-18.0) 07/09/18 05:50 Hct 51.6 % (35.0-51.0) H 07/09/18 05:50 MCV 89.0 fl (80.0-94.0) 07/09/18 05:50 MCH 29.6 pg (27.0-31.0) 07/09/18 05:50 MCHC 33.2 g/dL (33.0-37.0) 07/09/18 05:50 RDW 13.1 % (11.5-14.5) 07/09/18 05:50 Plt Count 148 K/uL (130-400) 07/09/18 05:50 MPV 7.9 fl (7.2-11.7) 07/09/18 05:50 Neut % (Auto) 61.8 % (50.0-75.0) 07/09/18 05:50 Lymph % (Auto) 23.7 % (20.0-40.0) 07/09/18 05:50 [place] % (Auto) 11.6 % (0.0-10.0) H 07/09/18 05:50 Eos % (Auto) 2.2 % (0.0-4.0) 07/09/18 05:50 Baso % (Auto) 0.7 % (0.0-2.0) 07/09/18 05:50 Neut # (Auto) 3.4 K/uL (1.8-7.0) 07/09/18 05:50 Lymph # (Auto) 1.3 K/uL (1.0-4.3) 07/09/18 05:50 [place] # (Auto) 0.6 K/uL (0.0-0.8) 07/09/18 05:50 Eos # (Auto) 0.1 K/uL (0.0-0.7) 07/09/18 05:50 Baso # (Auto) 0.0 K/uL (0.0-0.2) 07/09/18 05:50 PT 15.6 Seconds (9.8-13.1) H 07/09/18 05:50 INR 1.4 07/09/18 05:50 APTT 43.1 Seconds (25.6-37.1) H 07/09/18 05:50 Sodium 141 mmol/l (132-148) 07/09/18 05:50 Potassium 4.1 MMOL/L (3.6-5.0) 07/09/18 05:50 Chloride 100 mmol/L (98-107) 07/09/18 05:50 Carbon Dioxide 30 mmol/L (22-30) 07/09/18 05:50 Anion Gap 15 (10-20) 07/09/18 05:50 BUN 15 mg/dl (9-20) 07/09/18 05:50 Creatinine 0.8 mg/dl (0.8-1.5) 07/09/18 05:50 Est GFR ( Amer) > 60 07/09/18 05:50 Est GFR (Non-Af Amer) > 60 07/09/18 05:50 POC Glucose (mg/dL) 86 mg/dL (65-110) 07/10/18 16:28 Random Glucose 85 mg/dL (75-110) 07/09/18 05:50 Hemoglobin A1c 6.5 % (4.2-6.5) 07/09/18 05:50 Calcium 9.2 mg/dL (8.4-10.2) 07/09/18 05:50 Phosphorus 4.7 mg/dl (2.5-4.5) H 07/08/18 20:30 Magnesium 1.7 MG/DL (1.6-2.3) 07/08/18 20:30 Total Bilirubin 0.7 mg/dl (0.2-1.3) 07/09/18 05:50 AST 35 U/L (17-59) 07/09/18 05:50 ALT 35 U/L (21-72) 07/09/18 05:50 Alkaline Phosphatase 92 U/L (38-126) 07/09/18 05:50 Troponin I < 0.0120 ng/mL (0.00-0.120) 07/08/18 20:30 Total Protein 7.2 G/DL (6.3-8.2) 07/09/18 05:50 Albumin 4.2 g/dL (3.5-5.0) 07/09/18 05:50 Globulin 3.0 gm/dL (2.2-3.9) 07/09/18 05:50 Albumin/Globulin Ratio 1.4 (1.0-2.1) 07/09/18 05:50 Triglycerides 153 mg/DL (0-149) H 07/09/18 05:50 Cholesterol 131 mg/dL (0-199) 07/09/18 05:50 LDL Cholesterol Direct 67 mg/dL (0-129) 07/09/18 05:50 HDL Cholesterol 38 MG/DL (30-70) 07/09/18 05:50 Thyroxine (T4) 7.62 ug/dl (5.5-11.0) 07/09/18 05:50 TSH 3rd Generation 2.62 mIU/ML (0.46-4.68) 07/09/18 05:50 Urine Color Yellow (YELLOW) 07/08/18 22:10 Urine Clarity Slighty-cloudy (Clear) 07/08/18 22:10 Urine pH 7.0 (5.0-8.0) 07/08/18 22:10 Ur Specific [place] 1.018 (1.003-1.030) 07/08/18 22:10 Urine Protein 30 mg/dL (NEGATIVE) 07/08/18 22:10 Urine Glucose (UA) Neg mg/dL (Normal) 07/08/18 22:10 Urine Ketones Trace mg/dL (NEGATIVE) 07/08/18 22:10 Urine Blood Negative (NEGATIVE) 07/08/18 22:10 Urine Nitrate Negative (NEGATIVE) 07/08/18 22:10 Urine Bilirubin Negative (NEGATIVE) 07/08/18 22:10 Urine Urobilinogen 0.2-1.0 mg/dL (0.2-1.0) 07/08/18 22:10 Ur Leukocyte Esterase Neg Bee/uL (Negative) 07/08/18 22:10 Urine RBC (Auto) 1 /hpf (0-3) 07/08/18 22:10 Urine Microscopic WBC 1 /hpf (0-5) 07/08/18 22:10 Discharge Exam - Head Exam Head Exam: ATRAUMATIC, NORMAL INSPECTION Discharge Plan - Follow Up Plan Condition: FAIR Disposition: HOME/ ROUTINE Instructions: Syncope (Fainting) (DC), Generalized Weakness (DC) Additional Instructions: Follow up with PCP within one week Referrals: Jude Payne MD [Family Provider] -
== END 2018-07-10 17:10 | disposition home or self-care (01) ==
LOC: H.ER 19:12 → INTOOBSV 21:44 → H.ERHOLD 21:44 → H.TEL 07-09 00:21
PROVIDERS: ADMIT Internal Medicine Pulmonary Disease; ATTEND Internal Medicine Pulmonary Disease
DX: R41.82 Altered mental status, unspecified (principal); R53.1 Weakness; E11.9 Type 2 diabetes mellitus without complications; I10 Essential (primary) hypertension; F32.9 Major depressive disorder, single episode, unspecified; F41.9 Anxiety disorder, unspecified; E78.5 Hyperlipidemia, unspecified; Z86.73 Personal history of transient ischemic attack (TIA), and cerebral infarction without residual deficits; I48.91 Unspecified atrial fibrillation; E78.00 Pure hypercholesterolemia, unspecified; Z87.891 Personal history of nicotine dependence; R47.1 Dysarthria and anarthria; D45 Polycythemia vera
CPT/HCPCS: 36415; 70450; 70496; 70498; 70551; 80053; 80061; 81003; 82948; 83036; 83735; 84100; 84436; 84443; 84484; 85025; 85610; 85730; 93005; 93306; 93880; 97161; 97165; 99285; G0378; G8978; G8979; G8987; G8988; G8989; Q9967